=== PATIENT | male | born 1960 | race Caucasian/White ===

== ENCOUNTER → 2023-05-01 | Outpatient (CLI) | payer BC ==
[~2023-05-01] MED LIST: CEPHALEXIN500 M1 PO; MOTRIN 200200 MG/TAB PO; SYNTHROID0.075 MG/T PO; ZESTRIL30 MG PO; ZOCOR 20MG20 MG; ZOLOFT 50MG50 MG PO
== END ==
LOC: COL.RAD 10:00
DX: C61 Malignant neoplasm of prostate (principal); R39.0 Extravasation of urine
CPT/HCPCS: Q9967